=== PATIENT | female | born 1975 | race Two or more races ===

== ENCOUNTER 2018-01-11 18:24 | Emergency (ER) | payer OTHER ==
[2018-01-11] MEDS ORDERED: TOBRAMYCIN SULFATE/DEXAMETH OPH SUSP 2.5 ML OD ONE (19:24)
[2018-01-11] MEDS ORDERED: IPRATROPIUM/ALBUTEROL 0.5-2.5 MG/3 ML AMPUL NEB ONE (19:24)
--- NOTE | 2018-01-11 19:28 | ER Document Report ---
ED Respiratory Problem - General Chief Complaint: Productive Cough Stated Complaint: COUGH, BODY PAIN Time Seen by Provider: 01/11/18 19:18 Mode of Arrival: Ambulatory Information source: Patient Notes: History of Present Illness Chief Complaint: [cough] Cough quality= [dry], [without] sputum [No] hemoptysis [ ] History obtained from [patient] 42 years old female presents today with runny nose postnasal drip sore throat cough general body aches and pain for the last few days. Also having wheezing at nighttime. She is a smoker. Noted some redness in the left medial side of the eye. History was obtained through underlying translators Symptoms began: [past few days] Onset: [gradual] Timing: [constant, lasts hours, persists] Intensity: [moderate] Location: [respiratory tract] Radiation: [none] Migration: [none] Aggravating factors: [none] Relieving factors: [none] Review of Systems : All other systems negative as reviewed. CONSTITUTIONAL No Fever. EYES No eye pain. ENT No sore throat CARDIOVASCULAR No chest pain. RESPIRATORY No SOB, No wheezing, No orthopnea, No pedal edema. GI No abdominal pain, no vomiting, no diarrhea. GENITOURINARY No dysuria. SKIN No rash. NEUROLOGIC No headache. MUSCULOSKELETAL No back pain, No calf pain, No calf swelling Physical Exam CONSTITUTIONAL Vital signs reviewed, Patient has normal respiratory rate, Well appearing, Patient appears comfortable, normal stature. HEAD Atraumatic, Normocephalic. EYES Eyes are normal to inspection. Except left medial side of the eye has erythema no exudates noted. No trauma noted. No lacerations. ENT Ears normal to inspection, Nose examination normal. NECK No jugular venous distention. RESPIRATORY CHEST Breath sounds [decreased breath sounds with scattered wheezing no rales], No respiratory distress. CARDIOVASCULAR RRR, No murmurs, Normal S1 S2, No rub, No gallop. ABDOMEN Abdomen is nontender, No masses, Bowel sounds normal, No distension, No peritoneal signs. BACK Normal inspection. UPPER EXTREMITY Inspection normal. LOWER EXTREMITY Inspection normal. NEURO No facial droop, normal speech. SKIN Skin is warm, Skin is dry, Skin is normal color. PSYCHIATRIC Normal affect. TRAVEL OUTSIDE OF THE [place] IN LAST 30 DAYS: No - HPI Notes: Dictated - Related Data Allergies/Adverse Reactions: diphenhydramine [From Benadryl] Allergy (Verified 01/11/18 18:26) Past Medical History - Social History Smoking Status: Current Every Day Smoker Chew tobacco use (# tins/day): No Smoking Education Provided: No Frequency of alcohol use: Rare Drug Abuse: None Lives with: Family Family History: Reviewed & Not Pertinent Patient has suicidal ideation: No Patient has homicidal ideation: No Renal/ Medical History: Denies: Hx Peritoneal Dialysis Past Surgical History: Reports: Hx Gynecologic Surgery, Hx Hysterectomy Review of Systems - Review of Systems Notes: Dictated Physical Exam - Vital signs Vitals: Temp Pulse Resp BP Pulse Ox 98.4 F 90 18 119/71 98 01/11/18 18:33 01/11/18 18:33 01/11/18 18:33 01/11/18 18:33 01/11/18 18:33 - Notes Notes: Dictated Course - Re-evaluation Re-evalutation: 01/11/18 19:27 Given bronchodilator treatment with DuoNeb 01/11/18 20:32 With clinical improvement she was discharged home - Vital Signs Vital signs: Temp Pulse Resp BP Pulse Ox 98.6 F 71 16 104/64 99 01/11/18 20:51 01/11/18 20:51 01/11/18 20:51 01/11/18 20:51 01/11/18 20:51 Discharge - Discharge Clinical Impression: Bronchitis, Bronchospasm with bronchitis, acute Pharyngitis Qualifiers: Pharyngitis/tonsillitis etiology: unspecified etiology Qualified Code(s): J02.9 - Acute pharyngitis, unspecified Condition: Fair Disposition: HOME, SELF-CARE Instructions: Bronchitis With Bronchospasm (Wheezing) ([facility]), Sore Throat ([facility]) Prescriptions: Hydrocodone Bit/Homatropine [Hycodan Syrup 5-1.5 mg/5 ml Ud Cup] 5 ml PO Q4HP PRN #120 ml PRN Reason: Albuterol Sulfate [Proair HFA] 1 - 2 puff IH Q4 PRN #1 inhaler PRN Reason: Azithromycin [Zithromax Tri-Jovi] 500 mg PO DAILY #1 pkg Prednisone [Deltasone 20 mg Tablet] 3 tab PO DAILY 5 Days tablet Tobramycin Sulfate [Tobrex 0.3% Oph Soln 5 Ml] 1 drop OS Q4 #1 bottle Forms: Return to Work
[2018-01-11 20:52] VITALS: BP 104/64
== END 2018-01-11 20:55 | disposition home or self-care (01) ==
LOC: ER 18:24
DX: J20.9 Acute bronchitis, unspecified (principal); M79.10 Myalgia, unspecified site; F17.200 Nicotine dependence, unspecified, uncomplicated; Z90.710 Acquired absence of both cervix and uterus
CPT/HCPCS: 94640; 99283; 87070; 87880; J3490; J7620

== ENCOUNTER 2018-01-27 20:58 | Emergency (ER) | payer MEDICAID, OTHER ==
--- NOTE | 2018-01-27 21:43 | RADIOLOGY REPORT (SQ) ---
EXAM DESCRIPTION: XR FOREARM 2 VIEWS COMPLETED DATE/TME: 01/27/2018 00:00 CLINICAL HISTORY: 42 years, Female, hit with sledgehammer COMPARISON: None. NUMBER OF VIEWS: 2 TECHNIQUE: 2 view right forearm LIMITATIONS: None. FINDINGS: Negative for fracture or dislocation. Soft tissues are unremarkable IMPRESSION: Negative exam 2010 [facility]- All Rights Reserved
[2018-01-27] MEDS ORDERED: HYDROCODONE/ACETAMINOPHEN 5-325 MG TABLET PO ONE (21:58)
--- NOTE | 2018-01-27 22:00 | ER Document Report ---
ED Extremity Problem, Upper - General Chief Complaint: Arm Pain Stated Complaint: ARM PAIN Time Seen by Provider: 01/27/18 21:56 Information source: Patient, Relative Notes: Patient is a 42-year-old female comes emergency room coming by her cousin. Patient is and only speaks Ecuadorean but her cousin speaks perfect Slovak and is translating for us. He states that they are here working at [employer] as part of the [employer] group to help rebuild it. He states that his cousin the patient was walking behind a another worker going up steps at about 5:15 PM today and the walker in front of her was carrying a sledgehammer weighing about 30 pounds over the shoulder the head of the sledgehammer 30 pound part fell off the end and landed on patient's right forearm. TRAVEL OUTSIDE OF THE [place] IN LAST 30 DAYS: No - HPI Patient complains to provider of: Right, Forearm Onset: This afternoon Recent injury: Yes Where: Work Quality of pain: Sharp, Throbbing Severity of pain: Moderate, Persistent, Still present, Worse Pain Level: 3 Context: Blow Arm and Shoulder (Right): 1 - Area of pain and swelling Associated symptoms: None Exacerbated by: Movement Relieved by: Rest, Positioning Similar symptoms previously: No Recently seen / treated by doctor: No - Related Data Allergies/Adverse Reactions: diphenhydramine [From Benadryl] Allergy (Verified 01/11/18 18:26) Past Medical History - General Information source: Patient, Relative - Social History Smoking Status: Current Every Day Smoker Cigarette use (# per day): Yes - 2 packs a day Chew tobacco use (# tins/day): No Smoking Education Provided: Yes Frequency of alcohol use: None Drug Abuse: None Lives with: Family Family History: Reviewed & Not Pertinent Renal/ Medical History: Denies: Hx Peritoneal Dialysis Past Surgical History: Reports: Hx Gynecologic Surgery, Hx Hysterectomy Review of Systems - Review of Systems Constitutional: No symptoms reported EENT: No symptoms reported Cardiovascular: No symptoms reported Respiratory: No symptoms reported Gastrointestinal: No symptoms reported Genitourinary: No symptoms reported Female Genitourinary: No symptoms reported Musculoskeletal: Muscle pain Skin: No symptoms reported Hematologic/Lymphatic: No symptoms reported Neurological/Psychological: No symptoms reported -: Yes All other systems reviewed and negative Physical Exam - Vital signs Vitals: Temp Pulse Resp BP Pulse Ox 98.5 F 87 16 116/73 100 01/27/18 21:08 01/27/18 21:08 01/27/18 21:08 01/27/18 21:08 01/27/18 21:08 Interpretation: Normal - Notes Notes: PHYSICAL EXAMINATION: GENERAL: Uncomfortable-appearing, well-nourished and in no acute distress. HEAD: Atraumatic, normocephalic. EYES: Pupils equal round and reactive to light, extraocular movements intact, conjunctiva are normal. ENT: Nares patent, oropharynx clear without exudates. Moist mucous membranes. NECK: Normal range of motion, supple without lymphadenopathy LUNGS: Breath sounds clear to auscultation bilaterally and equal. No wheezes rales or rhonchi. HEART: Regular rate and rhythm without murmurs ABDOMEN: Soft, nontender, nondistended abdomen. No guarding, no rebound. No masses appreciated. Female : deferred Musculoskeletal: Physical exam patient's right forearm shows her to be moderate in the swelling in the proximal portion of the superior portion of the right forearm. It appears to be a small to moderate size hematoma. Patient has decreased bulk cooler installer strength but has full flexion and extension of the fingers. She has flexion and extension of the wrist but with increased amount of discomfort to the dorsal aspect of the forearm. Patient has good distal pulses she has good cap refill in the nailbeds of the right fingernails. She has a good brachial pulse. NEUROLOGICAL: Cranial nerves grossly intact. Normal speech, normal gait. Normal sensory, motor exams PSYCH: Normal mood, normal affect. SKIN: Warm, Dry there is no breaks or abrasions in the form of the skin. Course - Re-evaluation Re-evalutation: 01/28/18 01:35 EST Patient really did appear that she was in significant amount of discomfort. Flexion extension of the wrist moved to those extensor tendons and you could tell patient was wincing in pain. From the palpation of the area I do not believe patient tore anything bleed she just has a real good bruise. I put her in a sling and have informed her to ice it down. I have told her to return to ER if she has any concerns or problems. - Vital Signs Vital signs: Temp Pulse Resp BP Pulse Ox 97.7 F 75 16 100/48 L 99 01/27/18 22:38 01/27/18 22:38 01/27/18 21:08 01/27/18 22:38 01/27/18 22:38 Procedures - Immobilization Right Arm Pre-Proc Neuro Vasc Exam: Normal Immobilizer type: Sling Performed by: PCT Post-Proc Neuro Vasc Exam: Normal, Unchanged from pre-exam Alignment checked and good: Yes Discharge - Discharge Clinical Impression: Contusion of right forearm, initial encounter Condition: Stable Disposition: HOME, SELF-CARE Instructions: Contusion ([facility]) Additional Instructions: Home tonight rest. Ice to the area 2-3 times a day 20-30 minutes. Do not use heat for the first 48 hours. It is okay to take a shower. Use the sling for the next 48 hours to give your arm rest. Try not to have to grab anything with your right hand for the 48-hour time. After 48 hours you can attempt to start using the hand you may want to Giovanni wrap the area before attempting to go to work. Should you have any concerns or problems return to ER for recheck. You may also take ibuprofen 600-800 mg 3 times a day with food for the pain and swelling. Ibuprofen works very well for the inflammation. Prescriptions: Tramadol HCl 50 mg PO TID PRN #15 tablet PRN Reason: Forms: Special Work Note, Return to School
[2018-01-27 22:42] VITALS: BP 100/48
== END 2018-01-27 22:42 | disposition home or self-care (01) ==
LOC: ER 20:58
DX: S50.11XA Contusion of right forearm, initial encounter (principal); W20.8XXA Other cause of strike by thrown, projected or falling object, initial encounter; Y92.139 Unspecified place military base as the place of occurrence of the external cause; Y99.0 Civilian activity done for income or pay
CPT/HCPCS: 99283